=== PATIENT | female | born 1980 ===

== ENCOUNTER → 2020-03-01 | Outpatient (CLI) | payer BC | LOC: GMAJ 17:17 | PROVIDERS: ATTEND Family Medicine | DX: R53.83 Other fatigue (principal); J02.9 Acute pharyngitis, unspecified ==

== ENCOUNTER → 2020-04-14 | Outpatient (CLI) | payer BC | LOC: GMALS 16:09 | PROVIDERS: ATTEND Nurse Practitioner Acute Care | DX: R30.0 Dysuria (principal) ==

== ENCOUNTER → 2020-06-27 | Outpatient (CLI) | payer BC | LOC: GMAJ 14:20 | PROVIDERS: ATTEND Family Medicine | DX: E28.310 Symptomatic premature menopause (principal) ==